=== PATIENT | female | born 1995 | race Caucasian/White ===

== ENCOUNTER 2023-11-14 09:57 | Day surgery (SDC) | payer BC, OTHER ==
[2023-11-14] MEDS ORDERED: Depo-Medrol 40 MG/ML IM ONE (09:58)
[2023-11-14] MEDS ORDERED: Sodium Chloride 0.9(Preservative Free) 10 ML IJ ONE (09:58)
[2023-11-14] MEDS ORDERED: LIDOCAINE HCL 1% 50 MG/5 ML VL PF IJ ONE (09:58)
[2023-11-14] MEDS ORDERED: Decadron 4 MG INJ IV ONE (09:58)
[2023-11-14 10:40] LABS: HCG URINE TEST NEGATIVE (NEGATIVE)
[2023-11-14] MEDS ORDERED: DIPRIVAN 200 MG/20 ML IV ONE (11:52)
[2023-11-14] MEDS ORDERED: Xylocaine-Mpf 2% 5 Ml Vial ONE (11:52)
--- NOTE | 2023-11-14 12:44 | XRAY ---
Indication: Lumbar KARTHIK. Intraoperative fluoroscopy provided for 10 seconds. 2 digital spot images submitted for interpretation demonstrates posterior needle tip projecting just posterior to lumbosacral junction interspace. Small amount of contrast injected for needle tip placement. Correlate with intraoperative findings/report.
--- NOTE | 2023-11-14 12:45 | XRAY ---
Indication: Bilateral performed injection. Intraoperative fluoroscopy provided for 20 seconds. 3 digital spot images submitted for interpretation demonstrates posterior needle tips projecting over left and right piriformis. Small amount of contrast injected for both needle tip placement. Correlate with intraoperative findings/report.
[2023-11-14] MEDS ORDERED: Lactated Ringers 1,000 ML IV ONE (13:13)
--- NOTE | 2023-11-14 14:37 | XRAY ---
10 seconds of fluoroscopy was used in surgery for a lumbar KARTHIK.
--- NOTE | 2023-11-14 14:37 | XRAY ---
20 seconds of fluoroscopy was used in surgery for a bilateral piriformis injection.
== END 2023-11-14 12:30 ==
LOC: SDC-PAIN 09:57
PROVIDERS: ATTEND Psychiatry & Neurology Pain Medicine
DX: M54.16 Radiculopathy, lumbar region (principal); M79.18 Myalgia, other site
CPT/HCPCS: 20552; 62323; 72100; 72170; 77002; 77003; 81025; J1100; J2001; J2704; Q9966

== ENCOUNTER 2024-01-30 13:59 | Day surgery (SDC) | payer BC ==
[2024-01-30] MEDS ORDERED: BUPIVACAINE 0.5% VIAL IJ ONE (14:00)
[2024-01-30] MEDS ORDERED: LIDOCAINE HCL 1% AMPUL 5 ML IJ ONE (14:00)
[2024-01-30] MEDS ORDERED: Depo-Medrol 40 MG/ML IM ONE (14:00)
[2024-01-30 14:37] LABS: HCG URINE TEST NEGATIVE (NEGATIVE)
[2024-01-30] MEDS ORDERED: DIPRIVAN 200 MG/20 ML IV ONE (15:41)
--- NOTE | 2024-01-30 17:22 | XRAY ---
Indication: Bilateral greater trochanter bursa injection. Intraoperative fluoroscopy provided for 17 seconds. 2 digital spot image submitted for interpretation demonstrates needle tips projecting lateral to left and right greater trochanters. Small amount of contrast injected for both needle tip placement. Correlate with intraoperative findings/report.
--- NOTE | 2024-01-31 08:47 | XRAY ---
17 seconds of fluoroscopy was used in surgery for a bilateral greater trochanteric bursa injection.
== END 2024-01-30 16:12 | disposition home or self-care (01) ==
LOC: SDC-PAIN 13:59
PROVIDERS: ATTEND Psychiatry & Neurology Pain Medicine
DX: M70.62 Trochanteric bursitis, left hip (principal); M70.61 Trochanteric bursitis, right hip
CPT/HCPCS: 73521; 77002; 81025; J2704

== ENCOUNTER 2024-05-08 15:42 | Day surgery (SDC) | payer BC ==
[2024-05-08] MEDS ORDERED: Depo-Medrol 40 MG/ML IM ONE (15:43)
[2024-05-08] MEDS ORDERED: BUPIVACAINE 0.5% VIAL IJ ONE (15:43)
[2024-05-08 16:01] LABS: HCG URINE TEST NEGATIVE (NEGATIVE)
[2024-05-08] MEDS ORDERED: propofoL IV ONE (16:50)
--- NOTE | 2024-05-08 21:48 | XRAY ---
Indication: Bilateral SI joint injection. Intraoperative fluoroscopy provided for 28 seconds. 2 digital spot images submitted for interpretation demonstrates posterior needle tips projecting over left and right SI joints. Small amount of contrast injected for needle tip placement. Correlate with intraoperative findings/report.
--- NOTE | 2024-05-08 21:50 | XRAY ---
28 seconds of fluoroscopy were used in surgery for bilateral sacroiliac joint injections.
== END 2024-05-08 17:21 | disposition home or self-care (01) ==
LOC: SDC-PAIN 15:42
PROVIDERS: ATTEND Psychiatry & Neurology Pain Medicine
DX: M46.1 Sacroiliitis, not elsewhere classified (principal)
CPT/HCPCS: 27096; 72202; 77002; 81025; J2704

== ENCOUNTER 2024-06-04 14:43 | Day surgery (SDC) | payer BC ==
[2024-06-04] MEDS ORDERED: LIDOCAINE HCL 1% AMPUL 5 ML IJ ONE (14:44)
[2024-06-04] MEDS ORDERED: dexAMETHasone sodium phosphate IJ ONE (14:44)
[2024-06-04 14:58] LABS: HCG URINE TEST NEGATIVE (NEGATIVE)
[2024-06-04] MEDS ORDERED: Xylocaine-Mpf 2% 5 Ml Vial ONE (16:45)
[2024-06-04] MEDS ORDERED: propofoL IV ONE ×2 (16:45→16:49)
--- NOTE | 2024-06-04 20:22 | XRAY ---
Indication: Bilateral piriformis injection. Intraoperative fluoroscopy provided for 23 seconds. 2 digital spot images submitted for interpretation demonstrates posterior needle tips projecting over left and right piriformis. Small amount of contrast injected for needle tip placement. Correlate with intraoperative findings/report.
--- NOTE | 2024-06-04 20:27 | XRAY ---
23 seconds of fluoroscopy were used in surgery for bilateral piriformis muscle injections.
== END 2024-06-04 17:15 | disposition home or self-care (01) ==
LOC: SDC-PAIN 14:43
PROVIDERS: ATTEND Psychiatry & Neurology Pain Medicine
DX: M79.18 Myalgia, other site (principal)
CPT/HCPCS: 20553; 72170; 77002; 81025; J1100; J2704; Q9966

== ENCOUNTER 2024-07-02 12:10 | Day surgery (SDC) | payer BC ==
[2024-07-02] MEDS ORDERED: LIDOCAINE HCL 2% 100 MG/5 ML IJ ONE (12:11)
[2024-07-02] MEDS ORDERED: Depo-Medrol 40 MG/ML IM ONE (12:11)
[2024-07-02 13:10] LABS: HCG URINE TEST NEGATIVE (NEGATIVE)
[2024-07-02] MEDS ORDERED: propofoL IV ONE (14:31)
[2024-07-02] MEDS ORDERED: Xylocaine-Mpf 2% 5 Ml Vial ONE (14:34)
--- NOTE | 2024-07-02 14:58 | XRAY ---
Indication: Bilateral L4-S1 MBB. Intraoperative fluoroscopy provided for 11 seconds. Single digital spot image submitted for interpretation demonstrates posterior needle tips projecting over expected left and right L4-S1 nerve roots. Correlate with intraoperative findings/report.
--- NOTE | 2024-07-02 15:00 | XRAY ---
11 seconds of fluoroscopy was used in surgery for a bilateral L4-S1 MBB.
== END 2024-07-02 15:04 | disposition home or self-care (01) ==
LOC: SDC-PAIN 12:10
PROVIDERS: ATTEND Psychiatry & Neurology Pain Medicine
DX: M47.816 Spondylosis without myelopathy or radiculopathy, lumbar region (principal)
CPT/HCPCS: 64493; 64494; 72020; 81025; J2704

== ENCOUNTER 2024-07-23 13:09 | Day surgery (SDC) | payer BC ==
[2024-07-23] MEDS ORDERED: Depo-Medrol 40 MG/ML IM ONE (13:10)
[2024-07-23] MEDS ORDERED: Lactated Ringers IV ONE (13:10)
[2024-07-23] MEDS ORDERED: BUPIVACAINE 0.5% VIAL IJ ONE (13:10)
[2024-07-23 13:20] LABS: HCG URINE TEST NEGATIVE (NEGATIVE)
[2024-07-23] MEDS ORDERED: propofoL IV ONE (15:08)
[2024-07-23] MEDS ORDERED: Xylocaine-Mpf 2% 5 Ml Vial ONE (15:11)
--- NOTE | 2024-07-23 16:40 | XRAY ---
Indication: Bilateral L4-S1 MBB. Intraoperative fluoroscopy provided for 14 seconds. Single digital spot images submitted for interpretation demonstrates posterior needle tips projecting over expected left and right L4-S1 nerve roots. Correlate with intraoperative findings/report.
--- NOTE | 2024-07-23 17:20 | XRAY ---
14 seconds of fluoroscopy was used in surgery for a bilateral L4-S1 MBB.
== END 2024-07-23 15:40 | disposition home or self-care (01) ==
LOC: SDC-PAIN 13:09
PROVIDERS: ATTEND Psychiatry & Neurology Pain Medicine
DX: M47.817 Spondylosis without myelopathy or radiculopathy, lumbosacral region (principal)
CPT/HCPCS: 64493; 64494; 72020; 81025; J2704